=== PATIENT | female | born 1980 | race Caucasian/White ===

== ENCOUNTER 2019-11-04 05:57 | Inpatient (IN) ==
[2019-11-04] MEDS ORDERED: OXYTOCIN/DEXTROSE 5%-WATER 30 UNITS/500 ML BAG IV ONE (06:01)
[2019-11-04] MEDS ORDERED: RINGER'S SOLUTION,LACTATED 1,000 ML IV ONE (06:01)
[2019-11-04] MEDS ORDERED: LIDOCAINE HCL 50 ML VIAL PERI PRN (06:01)
[2019-11-04] MEDS ORDERED: PENICILLIN G POTASSIUM 5 MILLIONUNT in DEXTROSE 5 % IN WATER 100 ML IV ONE ×2 (06:01)
[2019-11-04] MEDS ORDERED: ONDANSETRON 4 MG TAB.RAPDIS PO PRN (06:01)
[2019-11-04] MEDS ORDERED: BUTORPHANOL TARTRATE 2 MG/ML VIAL IV PRN ×2 (06:01)
[2019-11-04 06:18] LABS: Hematocrit 39.7 % (37.0-47.0); Hemoglobin 13.6 gm/dL (12.5-16.0); Mean Cell Volume 97.5 fl (78-100); Mean Corpuscular Hemoglobin 33.4 pg (27-31); Mean Corpuscular Hgb Conc 34.3 g/dl (32-36); Mean Platelet Volume 10.4 fl (8-12.5); Neutrophil # 9.6 K/mm3 (1.3-6.0); Platelet Count 285 K/mm3 (150-450); Red Blood Count 4.07 M/mm3 (4.2-5.4); White Blood Count 13.3 K/mm3 (4.0-10.5)
[2019-11-04 06:37] LABS: Albumin * 2.7 gm/dl (3.4-5.0); Anion Gap 16.4 mmol/L (6.8-13.8); BUN/Creatinine Ratio 16.9 (9.0-21.6); Bilirubin, Total 0.3 mg/dL (0.0-1.1); Ca. Corrected For Albumin 9.2 mg/dL (8.4-10.2); Calcium * 8.5 mg/dL (7.9-10.9); Carbon Dioxide 22.6 mmol/L (24-32.6); Total Protein 7.1 gm/dL (6.2-8.2)
[2019-11-04] MEDS: RINGER'S SOLUTION,LACTATED 1,000 ML IV PRN ×2 (06:43→11:58)
[2019-11-04 07:34] LABS: Random Urine Total Protein 15.9 mg/dL (0-12)
[2019-11-04 07:38] LABS: Cocaine Ur Negative (NEGATIVE); Urine Barbiturate Negative (NEGATIVE); Urine Benzodiazepines Negative (NEGATIVE); Urine Opiates Negative (NEGATIVE); Urine PCP Negative (NEGATIVE); Urine THC Negative (NEGATIVE)
--- NOTE | 2019-11-04 10:04 | HP ---
Chief Complaint - Chief Complaint Date of Service: 11/04/19 Time of Service: 09:58 Chief Complaint: Induction History of Present Illness: 39 year old at 37w 2d who presents to labor and delivery for a medical induction of labor due to gestational hypertension. She denies signs or symptoms of pre-eclampsia other than swelling. She reports contractions on pitocin. She denies vb or lof. Fetus is active. 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 Herpes genitalia Ovarian cyst Onset Date: ~2014 Surgical History: Surgical History (Last Reviewed 11/04/19 @ 10:00 by Jacqui Stewart MD) No significant past surgical history Family History: Family History (Last Reviewed 11/04/19 @ 10:00 by Jacqui Stewart MD) Mother Breast cancer History of lumpectomy Father Alive and well Social History: (Last Reviewed 11/04/19 @ 10:00 by Jacqui Stewart MD) Social History: adopted: No Marital status: Single household members: children number of children: 3 current occupational status: employed current occupation: [employer] Highest education level completed: GED or equivalent Sexually Active: Yes Service: No Tobacco: Smoking Status: Never smoker Alcohol: alcohol intake: never Substance Use: substance use type: does not use Dietary Habits: caffeine: Yes caffeine comment: 1 daily Type: carbonated beverages Review Of Systems (GEN) - Review of Systems Generalized/Overall Review: Present: No Symptoms Reported Genitourinary: Present: Other - regular ctx Misc: All systems neg except as marked Allergies/Adverse Reactions: Allergies Allergy/AdvReac Type Severity Reaction Status Date / Time acetaminophen [From Vicodin] Allergy Verified 11/04/19 07:04 codeine Allergy Verified 11/04/19 07:04 hydrocodone bitartrate Allergy Verified 11/04/19 07:04 [From Vicodin] Home Medications: HOME MEDICATIONS valacyclovir 1 gram tablet 1,000 mg PO DAILY #30 tab 10/17/19 [Last Taken 11/03/19] vitamin #56-iron 35 mg and 5 mg-folic acid 1 mg-dha capsule 1 cap PO DAILY #30 cap 11/01/19 [Last Taken Unknown] Exam - Exam Vital Signs: Vital Signs - Last Taken Temp 35.9 C L 11/04/19 07:06 Pulse 101 H 11/04/19 07:06 Resp 18 11/04/19 07:06 BP 146/68 H 11/04/19 07:06 Pulse Ox 97 11/04/19 07:06 Constitutional: Present: Alert, Oriented x3, Cooperative ENT Exam: Present: hearing grossly normal Neck: Present: normal inspection Respiratory: Present: lungs clear, normal breath sounds, no respiratory distress Cardiovascular/Chest: Present: regular rate, rhythm Abdomen: Present: soft, nontender, nondistended /Rectal: Present: Other - 3/60/-2 AROM for clear fluid Extremity: Present: non-tender, no calf tenderness Skin Exam: Present: normal color, warm/dry, no cyanosis Appearance: Present: appropriate appearance Eye contact: Present: cooperative Thoughts: Present: normal thought pattern Diagnostic Studies: Abnormal Lab Results 11/04/19 11/04/19 11/04/19 Range/Units 06:01 06:10 06:10 WBC 13.3 H (4.0-10.5) K/mm3 RBC 4.07 L (4.2-5.4) M/mm3 MCH 33.4 H (27-31) pg Immature Gran % (Auto) 1.10 H (0.001-0.429) % Immature Gran # (Auto) 0.14 H (0.000-0.0310) K/mm3 Lymphocytes % 18.0 L (20-51) % Neutrophils # 9.6 H (1.3-6.0) K/mm3 Carbon Dioxide 22.6 L (24-32.6) mmol/L Anion Gap 16.4 H (6.8-13.8) mmol/L Random Glucose 111 H (70-110) mg/dL Albumin 2.7 L (3.4-5.0) gm/dl U Random Total Protein 15.9 H (0-12) mg/dL U [place] Prot/Creat Ratio 257 H (0-199) mg/gm Laboratory Results WBC 13.3 K/mm3 (4.0-10.5) H 11/04/19 06:10 RBC 4.07 M/mm3 (4.2-5.4) L 11/04/19 06:10 Hgb 13.6 gm/dL (12.5-16.0) 11/04/19 06:10 Hct 39.7 % (37.0-47.0) 11/04/19 06:10 MCV 97.5 fl (78-100) 11/04/19 06:10 MCH 33.4 pg (27-31) H 11/04/19 06:10 MCHC 34.3 g/dl (32-36) 11/04/19 06:10 RDW 14.0 % (11.5-14.0) 11/04/19 06:10 Plt Count 285 K/mm3 (150-450) 11/04/19 06:10 MPV 10.4 fl (8-12.5) 11/04/19 06:10 Immature Gran % (Auto) 1.10 % (0.001-0.429) H 11/04/19 06:10 Immature Gran # (Auto) 0.14 K/mm3 (0.000-0.0310) H 11/04/19 06:10 Neutrophils % 72.0 % (42-75.0) 11/04/19 06:10 Lymphocytes % 18.0 % (20-51) L 11/04/19 06:10 Monocytes % 7.5 % (0.0-9) 11/04/19 06:10 Eosinophils % 0.9 % (0.0-3.0) 11/04/19 06:10 Basophils % 0.5 % (0.0-1.0) 11/04/19 06:10 Nucleated RBC % 0.0 k/mm3 (0-1) 11/04/19 06:10 Neutrophils # 9.6 K/mm3 (1.3-6.0) H 11/04/19 06:10 Lymphocytes # 2.39 k/mm3 (1.5-3.5) 11/04/19 06:10 Monocytes # 1.0 k/mm3 (0.0-1.0) 11/04/19 06:10 Eosinophils # 0.1 k/mm3 (0.0-0.7) 11/04/19 06:10 Absolute Basophils 0.1 k/mm3 (0.0-0.1) 11/04/19 06:10 Sodium 138 mmol/L (132-142) 11/04/19 06:10 Plasma Sodium 138 mmol/L (130-142) 11/04/19 06:10 Potassium 4.0 mmol/L (3.4-4.6) 11/04/19 06:10 Chloride 103 mmol/L (97-106) 11/04/19 06:10 Carbon Dioxide 22.6 mmol/L (24-32.6) L 11/04/19 06:10 Anion Gap 16.4 mmol/L (6.8-13.8) H 11/04/19 06:10 BUN 12 mg/dL (3-23) 11/04/19 06:10 Creatinine 0.71 mg/dL (0.4-1.4) 11/04/19 06:10 Est GFR (Non-Af Amer) 98 mL/min (60-130) D 11/04/19 06:10 BUN/Creatinine Ratio 16.9 (9.0-21.6) 11/04/19 06:10 Random Glucose 111 mg/dL (70-110) H 11/04/19 06:10 Calcium 8.5 mg/dL (7.9-10.9) 11/04/19 06:10 Calcium Adj for Albumin 9.2 mg/dL (8.4-10.2) 11/04/19 06:10 Total Bilirubin 0.3 mg/dL (0.0-1.1) 11/04/19 06:10 AST 16 U/L (0-48) 11/04/19 06:10 ALT 20 U/L (19-67) 11/04/19 06:10 Alkaline Phosphatase 90 U/L (50-170) 11/04/19 06:10 Total Protein 7.1 gm/dL (6.2-8.2) 11/04/19 06:10 Albumin 2.7 gm/dl (3.4-5.0) L 11/04/19 06:10 Ur Random Creatinine 61.9 mg/dL (60-200) 11/04/19 06:01 U Random Total Protein 15.9 mg/dL (0-12) H 11/04/19 06:01 U [place] Prot/Creat Ratio 257 mg/gm (0-199) H 11/04/19 06:01 Urine Opiates Screen Negative (NEGATIVE) 11/04/19 06:01 Barbiturate Screen Negative (NEGATIVE) 11/04/19 06:01 Ur Phencyclidine Scrn Negative (NEGATIVE) 11/04/19 06:01 Urine Amphetamine Negative (NEGATIVE) 11/04/19 06:01 U Benzodiazepines Scrn Negative (NEGATIVE) 11/04/19 06:01 Urine Cocaine Screen Negative (NEGATIVE) 11/04/19 06:01 Urine Marijuana (THC) Negative (NEGATIVE) 11/04/19 06:01 Blood Type O Positive 11/04/19 06:10 Antibody Screen Negative 11/04/19 06:10 Assessment/Plan - Narrative Narrative: 39 year old at 37w 2d 1. Medical IOL due to GHTN: BP is in the mild range, asymptomatic other than swelling. Currently on pitocin. AROM with clear fluid 2. GBS positive: intrapartum prophylaxis 3. History of HSV: on valtrex for prophylaxis since 36 weeks
[2019-11-04] MEDS ORDERED: TERBUTALINE SULFATE 1 MG/ML VIAL ONE (10:17)
[2019-11-04] MEDS ORDERED: TERBUTALINE SULFATE 1 MG/ML VIAL SC ONE (10:18)
--- NOTE | 2019-11-04 10:35 | PN ---
Progess Note - Interim Date: 11/04/19 Time: 10:33 Narrative: 11/04/19 10:33 Called to bedside due to heart rate deceleration Pitocin turned off and fluid bolus in progress RN given verbal order for terbutaline cvx /-2 Internal monitors placed: both IUPC and FSE Restart pitocin in 30 minutes
[2019-11-04] MEDS: PENICILLIN G POTASSIUM 2.5 MILLIONUNT in DEXTROSE 5 % IN WATER 100 ML IV SCH ×4 (10:40→16:06)
--- NOTE | 2019-11-04 11:50 | PN ---
Progess Note - Interim Date: 11/04/19 Time: 11:48 Narrative: 11/04/19 11:48 Patient without complaints Came to assess patient due to minimal variability Pitocin turned off Cervical exam unchanged Discussed the possibility of having to do a delivery if the tracing does not improve. However, the tracing has improved since the pitocin has been off Restart pitocin in 30 minutes
[2019-11-04] MEDS ORDERED: KETOROLAC TROMETHAMINE 30 MG/ML VIAL ONE (13:05)
[2019-11-04] MEDS ORDERED: ONDANSETRON HCL/PF 2 MG/ML VIAL ONE (13:05)
[2019-11-04] MEDS ORDERED: PROPOFOL VIAL IV ONE (13:05)
[2019-11-04] MEDS ORDERED: fentaNYL CITRATE/PF 50 MCG/ML AMPUL ONE (13:05)
--- NOTE | 2019-11-04 13:08 | ANES ---
Anesthesia Pre Procedure Eval Vitals/Labs: Last Vital Signs Temp 35.9 C L 11/04/19 07:06 Pulse 101 H 11/04/19 07:06 Resp 18 11/04/19 07:06 BP 146/68 H 11/04/19 07:06 Pulse Ox 97 11/04/19 07:06 HOME MEDICATIONS valacyclovir 1 gram tablet 1,000 mg PO DAILY #30 tab 10/17/19 [Last Taken 11/03/19] vitamin #56-iron 35 mg and 5 mg-folic acid 1 mg-dha capsule 1 cap PO DAILY #30 cap 11/01/19 [Last Taken Unknown] Allergies/Adverse Reactions: Allergies Allergy/AdvReac Type Severity Reaction Status Date / Time acetaminophen [From Vicodin] Allergy Verified 11/04/19 07:04 codeine Allergy Verified 11/04/19 07:04 hydrocodone bitartrate Allergy Verified 11/04/19 07:04 [From Vicodin] - Planned Procedure Planned Procedure: C/S Medication List Reviewed:: Yes Allergies Verified: Yes Medical History (Last Reviewed 11/04/19 @ 13:07 by Vincent Carlisle CRNA) Abnormal Pap smear of cervix Onset Date: ~2011 Repeat pap smears normal Chlamydia infection Onset Date: ~2010 also in 2013 Gonorrhea Onset Date: ~2013 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 Herpes genitalia Ovarian cyst Onset Date: ~2014 Surgical History (Last Reviewed 11/04/19 @ 13:07 by Vincent Carlisle CRNA) No significant past surgical history Family History (Last Reviewed 11/04/19 @ 13:07 by Vincent Carlisle CRNA) Mother Breast cancer History of lumpectomy Father Alive and well - Family Anesthesia History Family History:: no untoward family reactions to anesthesia, no familial bleeding tendencies, no family history of clotting disorders, no family history of premature - Airway/Neck/Teeth Within Normal Limits:: Yes Teeth Condition: intact Mallampatti Score: 3 Thyromental (T-M) distance: > 6 cm Mandibulo Hyoid distance: > 3 cm - Respiratory Respiratory Physical: lungs clear Discussed smoking cessation including day of surgery: No Sleep Apnea currently treated: No Sleep Apnea by current assessment: No Discussed Risks/Treatment of VITO: No - Cardiovascular Tolerate Activity: Good Heart Sounds: S1 & S2, Regular - Gastrointestinal NPO since: 0700 - Anesthesia Assessment and Plan ASA Class: PS, II, E Anesthesia Type Plan: Spinal
[2019-11-04] MEDS ORDERED: ceFAZolin SODIUM/DEXTROSE,ISO 2 GM/50 ML BAG IV ONE ×2 (13:11→15:32)
--- NOTE | 2019-11-04 13:11 | PN ---
Progess Note - Interim Date: 11/04/19 Time: 13:08 Narrative: 11/04/19 13:08 Patient without complaints cvx unchanged Pitocin off again due to deceleration Proceed with primary delivery due to inability to run pitocin and to change her cervix All risks, benefits, and alternatives of the procedure were explained to the patient and the patient consented to the procedure
[2019-11-04] MEDS ORDERED: ceFAZolin SODIUM 1 GM VIAL IV PRN (13:17)
[2019-11-04] MEDS ORDERED: ceFAZolin SODIUM 1 GM VIAL ONE (13:25)
[2019-11-04] MEDS ORDERED: OXYTOCIN 20 UNITS in RINGER'S SOLUTION,LACTATED 1,000 ML IV ONE ×2 (13:26→15:47)
[2019-11-04] MEDS ORDERED: oxyCODONE HCL/ACETAMINOPHEN 1 TAB TABLET PO PRN (14:34)
[2019-11-04] MEDS ORDERED: ONDANSETRON HCL/PF 2 MG/ML VIAL IV PRN (14:34)
[2019-11-04] MEDS ORDERED: SENNOSIDES 8.6 MG TABLET PO PRN (14:34)
[2019-11-04] MEDS ORDERED: SIMETHICONE 80 MG TAB.CHEW PO PRN (14:34)
[2019-11-04] MEDS ORDERED: KETOROLAC TROMETHAMINE 30 MG/ML VIAL IV PRN (14:34)
[2019-11-04] MEDS ORDERED: BISACODYL 10 MG SUPP.RECT RC PRN (14:34)
[2019-11-04] MEDS ORDERED: diphenhydrAMINE HCL 25 MG CAPSULE PO PRN (14:34)
--- NOTE | 2019-11-04 14:34 | OR ---
Operative Report - Dictated Report Narrative: Date of delivery: 11/04/2019 Time of delivery: 1345 Gender: male weight: 3172 grams APGARS: 9/9 Preoperative diagnosis: IUP at 37w 2d, GHTN, AMA, non-reassuring heart tracing, desires sterilization Postoperative diagnosis: same Procedure: Primary delivery, bilateral salpingectomies Description of the procedure: The patient was taken to the operating room where spinal anesthesia was induced. She was then prepped and draped in the supine position in the standard surgical fashion. The abdomen was prepped with chlorhexidine and prophylactic antibiotics were administered. A time out was performed. A Pfannestiel skin incision was made. The incision was carried through the subcutaneous tissue. The fascia was incised in the midline. The fascial incision was extended sharply bilaterally. The fascia was tented up with Zeke clamps and dissected off the underlying rectus muscle. The rectus muscles were in the midline. The peritoneum was entered bluntly. A large Russell retractor was placed in the abdomen. The lower uterine segment was examined. The lower uterine segment was incised in a low transverse fashion. The lower uterine segment was extended bluntly. The head was delivered atramautically. The hand was adjacent to the head. The shoulders delivered without any difficulty followed by the rest of the . The cord was clamped and cut and the was handed off to the attending pediatric staff. The placenta was delivered by expression and appeared intact. The uterus was cleared of all clots and debris. The uterine incision was closed with 0-vicryl. A second layer of the same suture was used for hemostasis. Additional [id number] sutures were placed for hemostasis. Attention was then turned to the fallopian tubes. The right fallopian tube was identified by following it to the fimbriated end. The fallopian tube was cut along the mesosalpinx all the way to the cornual region. Hemostasis was adequate. The same procedure was repeated on the right fallopian tube. Both tubes were sent for pathological analysis. The fascia was closed with 2-0 vicryl. The subcutaneous tissue was irrigated and closed with 2-0 vicryl. The skin was closed with 3-0 monocryl. [place] lee was placed over the incision and a dressing was applied as well. All sponge, lap, and needle counts were correct. The patient tolerated the procedure well. She was transferred to the recovery room in stable condition. EBL: 500 mL Complications: none Specimens: placenta, bilateral fallopian tubes History for MU Definition: * The number of deliveries resulting in a live the patient experienced prior to current hospitalization * The previous delivery of live twins or any live multiple gestation is considered one live event. *If primagravida or nulliparous is documented select zero for the number of previous live births. Live Events: 3
--- NOTE | 2019-11-04 14:40 | ANES ---
Post Anesthesia Discharge - Transfer of Care Transfer of Care handoff given to nurse: Yes - Discharge from PACU Discharge from PACU when meets criteria: Yes - Discharge to ASU Discharge to ASU-no complications/pt stable: Yes
--- NOTE | 2019-11-04 14:40 | ANES ---
Post Anesthesia Assessment - Vital Signs Vitals: Last Vital Signs Temp 35.9 C L 11/04/19 07:06 Pulse 101 H 11/04/19 07:06 Resp 18 11/04/19 07:06 BP 146/68 H 11/04/19 07:06 Pulse Ox 97 11/04/19 07:06 Airway Patency: Normal - Mental Status Level Of Consciousness: Awake - Pain Level Pain Score: 3 - N/V Assessment Nausea/Vomiting Presence: None Dehydration:: No
[2019-11-04] MEDS ORDERED: MISOPROSTOL 200 MCG TABLET RC ONE (15:00)
[2019-11-04] MEDS: IBUPROFEN 800 MG TABLET PO PRN ×2 (15:27→21:33)
[2019-11-04] MEDS: oxyCODONE HCL/ACETAMINOPHEN 1 TAB TABLET PO PRN ×2 (15:28→23:20)
--- NOTE | 2019-11-04 15:39 | PN ---
Progess Note - Interim Date: 11/04/19 Time: 15:33 Narrative: 11/04/19 15:33 Called to patient's bedside due to vaginal bleeding Instructed RN to give the patient 1000 mcg cytotec [place] A bimanual exam was done and a small amount of clot was expressed The estimated blood loss was 274 mL Will give the patient an additional bag of pitocin. If the bleeding persists in 20 minutes give hemabate since methergine is contraindicated due to GHTN Give an additional dose of Ancef 2 grams IV due to manual uterine exploration
[2019-11-04] MEDS: DOCUSATE SODIUM 100 MG CAPSULE PO SCH (21:32)
[2019-11-05] MEDS: oxyCODONE HCL/ACETAMINOPHEN 1 TAB TABLET PO PRN ×6 (02:21→22:44)
[2019-11-05] MEDS: IBUPROFEN 800 MG TABLET PO PRN ×3 (05:50→22:45)
--- NOTE | 2019-11-05 08:27 | PN ---
Subjective - Date and Time Seen Date: 11/05/19 Time: 08:23 Subjective Narrative: Patient without complaints Objective Objective Narrative: See vital signs - Review of Systems Generalized/Overall Review: Reports: No Symptoms Reported Misc: All systems neg except as marked - Vitals Vitals: Last Vital Signs Temp 35.9 C L 11/05/19 07:20 Pulse 101 H 11/05/19 07:20 Resp 16 11/05/19 07:20 BP 116/74 11/05/19 07:20 Pulse Ox 96 11/05/19 07:20 - Exam Constitutional: Present: Alert, Oriented x3, Cooperative, No distress ENT Exam: Present: hearing grossly normal Abdomen: Present: soft, nontender, nondistended Extremity: Present: non-tender, no calf tenderness Skin Exam: Present: normal color, warm/dry, no cyanosis Appearance: Present: appropriate appearance Eye contact: Present: cooperative Thoughts: Present: normal thought pattern Cauti Physician Documentation - Urinary Catheter Management Urethral (Hassan) Urethral Indwelling: No Date of Insertion: 11/04/19 Time of Insertion: 13:35 Assessment/Plan Plan Narrative: POD 1 s/p primary delivery Doing well Discharge POD 3
[2019-11-05] MEDS: DOCUSATE SODIUM 100 MG CAPSULE PO SCH ×2 (08:31→21:05)
[2019-11-06] MEDS: oxyCODONE HCL/ACETAMINOPHEN 1 TAB TABLET PO PRN ×4 (04:29→21:33)
--- NOTE | 2019-11-06 07:54 | PN ---
Subjective - Date and Time Seen Date: 11/06/19 Time: 07:52 Subjective Narrative: Patient without complaints Objective Objective Narrative: See vital signs - Review of Systems Generalized/Overall Review: Reports: No Symptoms Reported Misc: All systems neg except as marked - Vitals Vitals: Last Vital Signs Temp 36.5 C 11/06/19 07:14 Pulse 100 11/06/19 07:14 Resp 16 11/06/19 07:14 BP 125/79 11/06/19 07:14 Pulse Ox 95 11/06/19 07:14 - Exam Constitutional: Present: Alert, Oriented x3, Cooperative, No distress Abdomen: Present: soft, nontender, nondistended - incision c/d/i Extremity: Present: non-tender, no calf tenderness Skin Exam: Present: normal color, warm/dry, no cyanosis Appearance: Present: appropriate appearance Eye contact: Present: cooperative Thoughts: Present: normal thought pattern Cauti Physician Documentation - Urinary Catheter Management Urethral (Hassan) Urethral Indwelling: No Date of Insertion: 11/04/19 Time of Insertion: 13:35 Assessment/Plan Plan Narrative: POD 2 s/p primary delivery, salpingectomies Doing well Discharge tomorrow
[2019-11-06] MEDS: IBUPROFEN 800 MG TABLET PO PRN ×3 (07:58→21:33)
[2019-11-06] MEDS: DOCUSATE SODIUM 100 MG CAPSULE PO SCH ×3 (07:58→21:33)
[2019-11-07] MEDS: oxyCODONE HCL/ACETAMINOPHEN 1 TAB TABLET PO PRN ×2 (05:45→10:21)
[2019-11-07] MEDS: IBUPROFEN 800 MG TABLET PO PRN (05:45)
[2019-11-07 07:46] VITALS: BP 146/66
--- NOTE | 2019-11-07 08:44 | PN ---
Subjective - Date and Time Seen Date: 11/07/19 Time: 08:43 Subjective Narrative: Patient without complaints Objective Objective Narrative: See vital signs - Review of Systems Generalized/Overall Review: Reports: No Symptoms Reported Misc: All systems neg except as marked - Vitals Vitals: Last Vital Signs Temp 36.1 C 11/07/19 07:45 Pulse 90 11/07/19 07:45 Resp 18 11/07/19 07:45 BP 146/66 H 11/07/19 07:45 Pulse Ox 95 11/07/19 07:45 - Exam Constitutional: Present: Alert, Oriented x3, Cooperative, No distress Abdomen: Present: soft, nontender, nondistended - incision c/d/i Extremity: Present: non-tender, no calf tenderness Skin Exam: Present: normal color, warm/dry, no cyanosis Appearance: Present: appropriate appearance Eye contact: Present: cooperative Thoughts: Present: normal thought pattern Cauti Physician Documentation - Urinary Catheter Management Urethral (Hassan) Urethral Indwelling: No Date of Insertion: 11/04/19 Time of Insertion: 13:35 Assessment/Plan Plan Narrative: POD 3 s/p primary delivery, salpingectomies Doing well Discharge instructions given Follow-up 4/3 or sooner for any other concerns
[2019-11-07] MEDS: DOCUSATE SODIUM 100 MG CAPSULE PO SCH (10:21)
== END 2019-11-07 12:30 | disposition home or self-care (01) | DRG 785 ==
LOC: OB 05:57
PROVIDERS: ADMIT Obstetrics & Gynecology; ATTEND Obstetrics & Gynecology
DX: O13.4 Gestational [pregnancy-induced] hypertension without significant proteinuria, complicating childbirth; Z37.0 Single live birth; Z3A.38 38 weeks gestation of pregnancy; Z30.2 Encounter for sterilization; O76 Abnormality in fetal heart rate and rhythm complicating labor and delivery
CPT/HCPCS: 36415; 59025; 80053; 80307; 82570; 84155; 84156; 85025; 86850; 88304; 88307; 88888; J2405